=== PATIENT | male | born 1965 | race Two or more races ===

== ENCOUNTER 2016-12-12 02:57 | Emergency (ER) | payer BC ==
--- NOTE | 2016-12-12 03:05 | PDOC ---
History of Present Illness - General Chief Complaint: Pain Stated Complaint: ABD PAIN Time Seen by Provider: 12/12/16 03:05 - History of Present Illness Initial Comments: 12/12/16 03:20 This 51-year-old man, history of IDDM, hyperlipidemia, hypothyroidism presents with a two-week history of intermittent abdominal pain. Patient states that pain is sharp and worsened after eating. He cannot locate specific area of his abdomen saying that he feels pain "all over" his abdomen. He has mild nausea but no history of vomiting. No fever or chills. He has not had any loose stools but states he has had multiple (5-6) soft stools daily for the last several days. He has a history of GERD that was treated with medication prescribed by his doctor; no other intra-abdominal issues. He denies chest pain , shortness of breath.No blood in stool/ no black stool The patient also has been seeing his PMD with a few week history of left hip/ left proximal leg pain. No history of trauma or overuse. He recently had x- rays of the lower back/hip and is awaiting approval of MRI of the lower back. Tobacco: 3/4 pack per day Alcohol: rarely; no other recreational drugs PMD:Dr Davila PMH: as per HPI Also, hx of splenecectomy(after trauma) Past History - Past Medical History Allergies/Adverse Reactions: Allergies Allergy/AdvReac Type Severity Reaction Status Date / Time No Known Drug Allergies Allergy Verified 05/25/14 12:59 Home Medications: Ambulatory Orders Hum Insulin NPH/Reg Insulin Hm [Novolin 70-30 100 Unit/ml Vial] 13 units SQ TID 04/22/14 Hydrocodone/Acetaminophen [Vicodin 5-300 mg Tablet] 1 tab PO QID PRN #60 tablet 05/25/14 Atorvastatin Ca [Lipitor] 10 mg PO HS 12/12/16 Hyoscyamine Odt [Levsin Odt -] 0.125 mg SL QID PRN #20 tab.rapdis 12/12/16 Levothyroxine Sodium [Synthroid] 112 mcg PO DAILY 12/12/16 Diabetes: Yes - Surgical History Abdominal Surgery: Yes (SPLEENECTOMY) Orthopedic Surgery: Yes (ARTHROSCOPY LEFT SHOULDER) - Psycho/Social/Smoking Cessation Hx Smoking History: Current every day smoker Have you smoked in the past 12 months: Yes Number of Cigarettes Smoked Daily: 15 'Breaking Loose' booklet given: 04/22/14 Hx Alcohol Use: Yes (SOCIALLY) Substance Use Type: Alcohol Review of Systems - Review of Systems Able to Perform ROS?: Yes Comments:: 12 point review of systems is negative except for what is noted in the history of present illness *Physical Exam - Physical Exam Comments: GENERAL:Adult male,alert and oriented 3, in no acute distress HEAD: Normal with no signs of trauma. EYES: PERRLA, EOMI, sclera anicteric, conjunctiva clear. ENT: Ears normal, nares patent, oropharynx clear without exudates. Dry mucous membranes. NECK: Normal range of motion, supple without lymphadenopathy, JVD, or masses. LUNGS: Breath sounds equal, clear to auscultation bilaterally. No wheezes, and no crackles. HEART:Regular rate and rhythm, normal S1 and S2 without murmur, rub or gallop. ABDOMEN:.normal bowel sounds Minimal epigastric tenderness;Moderate LLQ tenderness without guarding/rebound No masses palpated EXTREMITIES: Normal range of motion, no edema. No clubbing or cyanosis. No erythema, or tenderness. NEUROLOGICAL: Cranial nerves II through XII grossly intact. Normal speech. No focal neuroloc deficts MUSCULOSKELETAL: Back non-tender to palpation, no CVA tenderness SKIN: Warm, Dry, normal turgor, no rashes or lesions noted. ED Treatment Course - LABORATORY CBC & Chemistry Diagram: 12/12/16 03:32 12/12/16 03:32 Progress Note - Progress Note Progress Note: .This 51-year-old man, insulin-dependent diabetic, presents with a few week history of intermittent sharp abdominal pain, felt throughout the abdomen and worse after eating. He also has had an increase in bowel movements (soft/not liquid) during this time. No previous history of gastrointestinal issues and is not yet had colonoscopy. Exam notable for left lower quadrant tenderness without peritoneal signs CBC/chemistry profile/lipase/cardiac enzymes/urinalysis sent Because of patient's left lower quadrant tenderness and change in bowel habits, abdominal/pelvic CT will be performed. Oral contrast will be given Medical Decision Making - Medical Decision Making 12/12/16 06:39 Abdominal/pelvic CT shows moderate wall edema and narrowing of transverse and descending colon (long segment without other abnormality) no evidence of diverticulitis or other acute abnormality. No masses noted. Results discussed with the patient. Patient be given Levsin 0.125 ODT now and prescription for this medication to be taken up to 4 times a day as needed for abdominal cramping will be sent to pharmacy. The patient will follow-up with Dr. Davila today; it is suggested that he call the office early today and follow-up as planned. Patient should return to the emergency room if he has severe persistent pain or develops fever/vomiting *DC/Admit/Observation/Transfer Diagnosis at time of Disposition: Colitis Abdominal pain Qualifiers: Abdominal location: generalized Qualified Code(s): R10.84 - Generalized abdominal pain - Discharge Dispostion Disposition: HOME Condition at time of disposition: Stable - Prescriptions Prescriptions: Hyoscyamine Odt [Levsin Odt -] 0.125 mg SL QID PRN #20 tab.rapdis PRN Reason: Pain - Referrals Referrals: Lee Davila MD [Primary Care Provider] - Call tomorrow - Patient Instructions Printed Discharge Instructions: DI for Colitis Additional Instructions: levsin ODT 0.125mg up to 4 times a day as needed for abdominal pain call Dr Davila today; followup as scheduled return to ER if you have severe pain or develop fever/vomiting
[2016-12-12 03:17] VITALS: BP 126/90; PULSE 65; TEMP 98.2; BMI 27.1
[2016-12-12 03:50] LABS: BASOPHIL 0.2 % (0-2.0); EOSINOPHIL 3.7 % (0-4.5); MCH 28.9 pg (25.7-33.7); MCHC 32.5 g/dl (32.0-35.9); MEAN CELL VOLUME 88.8 fl (80-96); MEAN PLT VOLUME 7.8 fl (7.5-11.1); NEUTROPHILS 54.6 % (42.8-82.8); PLATELET COUNT 479 K/MM3 (134-434); WHITE BLOOD COUNT 11.6 K/mm3 (4.0-10.0)
[2016-12-12 03:53] LABS: URINE APPEARANCE CLEAR; URINE BILIRUBIN NEGATIVE (NEGATIVE); URINE BLOOD NEGATIVE (NEGATIVE); URINE COLOR YELLOW; URINE GLUCOSE (UA) NEGATIVE (NEGATIVE); URINE KETONE NEGATIVE (NEGATIVE); URINE LEUK ESTERASE NEGATIVE (NEGATIVE); URINE NITRITE NEGATIVE (NEGATIVE); URINE PROTEIN NEGATIVE (NEGATIVE); URINE UROBILINOGEN NEGATIVE E.U./dl (0.2-1.0)
[2016-12-12 04:11] LABS: ALBUMIN 3.9 g/dl (3.4-5.0); ANION GAP 6 (8-16); BILIRUBIN,TOTAL 0.4 mg/dL (0.2-1.0); CALCIUM 9.1 mg/dL (8.5-10.1); CO2 29 mmol/L (21-32); GLUCOSE,RANDOM 119 mg/dL (74-106); SGOT/AST 24 U/L (15-37); SGPT/ALT 29 U/L (12-78); TOT PROT 7.7 g/dl (6.4-8.2)
[2016-12-12 04:14] LABS: ALK PHOS 107 U/L (45-117); TROPONIN I < 0.02 ng/ml (0.00-0.05)
[2016-12-12] MEDS ORDERED: KETOROLAC TROMETHAMINE 30 MG/1 ML VIAL IVPUSH ONE (06:11)
[2016-12-12] MEDS ORDERED: KETOROLAC TROMETHAMINE 30 MG/1 ML VIAL ONE (06:11)
[2016-12-12] MEDS ORDERED: HYOSCYAMINE SULFATE 0.125 MG *ODT PO ONE (06:24)
[2016-12-12] MEDS ORDERED: HYOSCYAMINE SULFATE 0.125 MG *ODT ONE (06:26)
== END 2016-12-12 06:53 | disposition home or self-care (01) ==
LOC: FER 02:57
PROC: 3E0333Z Introduction of Anti-inflammatory into Peripheral Vein, Percutaneous Approach (ICD-10-PCS; principal; 2016-12-12)
DX: K52.9 Noninfective gastroenteritis and colitis, unspecified (principal); R10.84 Generalized abdominal pain; E11.9 Type 2 diabetes mellitus without complications; F17.210 Nicotine dependence, cigarettes, uncomplicated; Z79.4 Long term (current) use of insulin
CPT/HCPCS: 36415; 74177-TC; 80053; 81003; 82550; 82553; 83690; 84484; 85025; 99283-25

== ENCOUNTER 2023-08-24 05:59 | Inpatient (IN) | payer BC, OTHER ==
[2023-08-24] MEDS ORDERED: ACETAMINOPHEN 1000 MG/100 ML BAG IVPB ONE (06:20)
[2023-08-24] MEDS ORDERED: PIPERACILLIN/TAZOB 4.5 GM 4.5 GM in DEXTROSE 5%-WATER 100 ML IVPB ONE (06:20)
[2023-08-24] MEDS ORDERED: SODIUM CHLORIDE 0.9% 500 ML INFUS.BAG IV ONE (06:20)
[2023-08-24] MEDS ORDERED: VANCOMYCIN 1,000 MG in DEXTROSE 5%-WATER - 250 ML IVPB ONE (06:20)
[2023-08-24] MEDS ORDERED: ACETAMINOPHEN INJECTION 100 ML IVPB ONE (06:28)
[2023-08-24 07:06] LABS: HEMATOCRIT 38.3 % (35.4-49); HEMOGLOBIN 12.6 GM/dL (11.7-16.9); MCH 28.9 pg (25.7-33.7); MCHC 32.9 g/dl (32.0-35.9); MEAN CELL VOLUME 87.7 fl (80-96); PLATELET COUNT 669 10^3/uL (134-434); RBC 4.37 M/mm3 (4.00-5.60); RDW 14.3 % (11.9-15.9)
[2023-08-24 07:10] LABS: INR 1.02 (0.83-1.09); PROTHROMBIN TIME (PATIENT) 11.8 SEC (9.7-13.0)
[2023-08-24 07:13] LABS: ACTIVATED PTT 32.8 SECONDS (25.2-36.5)
[2023-08-24 07:46] LABS: POTASSIUM 4.2 mmol/L (3.5-5.1)
[2023-08-24 07:48] LABS: CALCIUM 8.8 mg/dL (8.5-10.1)
[2023-08-24 07:49] LABS: BLOOD UREA NITROGEN 17.8 mg/dL (7-18)
[2023-08-24 07:52] LABS: CREATININE 0.7 mg/dL (0.55-1.3)
[2023-08-24 07:54] LABS: BILIRUBIN,TOTAL 0.3 mg/dL (0.2-1); TOT PROT 7.1 g/dl (6.4-8.2)
[2023-08-24] MEDS ORDERED: PIPERACILLIN/TAZOB 4.5 GM 4.5 GM/100 ML BAG IVPB ONE (08:06)
[2023-08-24] MEDS ORDERED: VANCOMYCIN 1 GRAM (PRE-DOCKED) 1,000 MG/250 ML BAG IVPB ONE (08:06)
[2023-08-24 09:18] LABS: ANISOCYTOSIS 1+; MACROCYTOSIS 0; TARGET CELLS 1+; TEAR DROP CELLS 1+
[2023-08-24] MEDS ORDERED: INSULIN (NOVOLOG) ASPART 100 UNITS/ML 10ML VIAL ONE (11:36)
[2023-08-24] MEDS: INSULIN SLIDING SCALE (NOVOLOG) 1 VIAL SQ SCH ×2 (11:38→15:58)
[2023-08-24] MEDS: LACTATED RINGERS SOLUTION 1,000 ML IV SCH (11:39)
[2023-08-24] MEDS: ENOXAPARIN NA (PORCINE) 40 MG/0.4 ML DISP.SYRIN SQ SCH (11:39)
[2023-08-24] MEDS: ACETAMINOPHEN 325 MG TABLET (FP) PO PRN ×2 (13:37→23:43)
[2023-08-24] MEDS ORDERED: PIPERACILLIN/TAZOB 3.375 GM 3.375 GM in DEXTROSE 5%-WATER - 50 ML IVPB SCH (16:00)
[2023-08-24] MEDS ORDERED: FLU VACCINE (FLULAVAL) PF 60 MCG/0.5 ML SYRINGE 2023-2024 IM ONE (16:00)
[2023-08-24] MEDS ORDERED: PNEUMOC 20-VAL CONJ-DIP CRM/PF 0.5 ML SYRINGE IM ONE (16:00)
[2023-08-24] MEDS ORDERED: VANCOMYCIN PREMIX 1.5 GM 1,500 MG/300 ML BAG IVPB SCH ×2 (18:00→22:00)
[2023-08-24] MEDS: PIPERACILLIN/TAZOB 3.375 GM 3.375 GM in DEXTROSE 5%-WATER - 50 ML IVPB SCH (18:14)
[2023-08-24] MEDS: ATORVASTATIN CA 20 MG TABLET (FP) PO SCH (22:52)
[2023-08-24] MEDS: VANCOMYCIN/WATER FOR INJ (PEG) 1,000 MG/200 ML BAG IVPB SCH (23:25)
[2023-08-25] MEDS ORDERED: KETOROLAC TROMETHAMINE 15 MG/ML VIAL IM ONE (00:53)
[2023-08-25] MEDS ORDERED: KETOROLAC TROMETHAMINE 15 MG/ML VIAL IVPUSH ONE (01:30)
[2023-08-25] MEDS: VANCOMYCIN/WATER FOR INJ (PEG) 1,000 MG/200 ML BAG IVPB SCH ×3 (01:56→22:54)
[2023-08-25] MEDS: PIPERACILLIN/TAZOB 3.375 GM 3.375 GM in DEXTROSE 5%-WATER - 50 ML IVPB SCH ×3 (03:49→19:05)
[2023-08-25] MEDS: LEVOTHYROXINE NA 100 MCG TABLET (FP) PO SCH (06:52)
[2023-08-25] MEDS ORDERED: INSULIN SLIDING SCALE (NOVOLOG) 1 VIAL SQ SCH ×2 (07:17→07:30)
[2023-08-25] MEDS: INSULIN SLIDING SCALE (NOVOLOG) 1 VIAL SQ SCH ×4 (07:27→23:00)
[2023-08-25 08:33] LABS: BASO % 0.9 % (0-2.0); EOS % 1.9 % (0-4.5); LYMPH % 18.7 % (8-40); MCH 28.3 pg (25.7-33.7); MCHC 32.5 g/dl (32.0-35.9); MEAN CELL VOLUME 87.3 fl (80-96); MEAN PLT VOLUME 7.7 fl (7.5-11.1); MONO % 9.5 % (3.8-10.2); PLATELET COUNT 620 10^3/uL (134-434); RBC 3.89 M/mm3 (4.00-5.60); RDW 14.3 % (11.9-15.9); WHITE BLOOD COUNT 14.7 K/mm3 (4.0-10.0)
[2023-08-25 08:41] LABS: INR 1.03 (0.83-1.09)
[2023-08-25 08:44] LABS: ACTIVATED PTT 31.7 SECONDS (25.2-36.5)
[2023-08-25 08:49] LABS: POTASSIUM 4.2 mmol/L (3.5-5.1)
[2023-08-25 08:53] LABS: CALCIUM 8.5 mg/dL (8.5-10.1); MAGNESIUM 1.7 mg/dL (1.8-2.4)
[2023-08-25 08:55] LABS: ALBUMIN 2.4 g/dl (3.4-5.0); BLOOD UREA NITROGEN 14.5 mg/dL (7-18)
[2023-08-25 08:57] LABS: CREATININE 0.6 mg/dL (0.55-1.3)
[2023-08-25 08:58] LABS: PHOSPHOROUS 2.9 mg/dL (2.5-4.9); TOT PROT 5.9 g/dl (6.4-8.2)
[2023-08-25 09:00] LABS: BILIRUBIN,TOTAL 0.4 mg/dL (0.2-1)
[2023-08-25] MEDS ORDERED: MAGNESIUM OXIDE 400 MG TABLET (FP) PO ONE (09:11)
[2023-08-25] MEDS ORDERED: oxyCODONE HCL 5 MG TABLET PO PRN (09:53)
[2023-08-25] MEDS ORDERED: ACETAMINOPHEN 1000 MG/100 ML BAG IVPB PRN (09:56)
[2023-08-25] MEDS ORDERED: DOCUSATE SODIUM 100 MG CAPSULE (FP) PO ONE (10:15)
[2023-08-25] MEDS: ENOXAPARIN NA (PORCINE) 40 MG/0.4 ML DISP.SYRIN SQ SCH (10:43)
[2023-08-25] MEDS: ACETAMINOPHEN 325 MG TABLET (FP) PO PRN (10:53)
[2023-08-25] MEDS: LACTATED RINGERS SOLUTION 1,000 ML IV SCH (10:54)
[2023-08-25] MEDS: INSULIN (LEVEMIR) 100 UNITS/ML UNITS SQ SCH (22:53)
[2023-08-25] MEDS: ATORVASTATIN CA 20 MG TABLET (FP) PO SCH (22:53)
[2023-08-25] MEDS ORDERED: MELATONIN 5 MG TABLETS PO ONE (23:50)
[2023-08-26] MEDS ORDERED: MELATONIN 5 MG TABLETS PO ONE (00:30)
[2023-08-26] MEDS ORDERED: INSULIN (NOVOLOG) ASPART 100 UNITS/ML 10ML VIAL ONE ×3 (00:57→22:35)
[2023-08-26] MEDS: PIPERACILLIN/TAZOB 3.375 GM 3.375 GM in DEXTROSE 5%-WATER - 50 ML IVPB SCH ×3 (01:01→17:35)
[2023-08-26] MEDS: LEVOTHYROXINE NA 100 MCG TABLET (FP) PO SCH (06:53)
[2023-08-26] MEDS: INSULIN (LEVEMIR) 100 UNITS/ML UNITS SQ SCH ×2 (06:53→22:37)
[2023-08-26] MEDS: INSULIN SLIDING SCALE (NOVOLOG) 1 VIAL SQ SCH ×4 (06:54→22:32)
[2023-08-26 07:43] LABS: EOS % 0.6 % (0-4.5); HEMATOCRIT 36.4 % (35.4-49); HEMOGLOBIN 11.7 GM/dL (11.7-16.9); LYMPH % 11.9 % (8-40); MCHC 32.1 g/dl (32.0-35.9); MEAN CELL VOLUME 87.2 fl (80-96); MEAN PLT VOLUME 7.7 fl (7.5-11.1); MONO % 8.4 % (3.8-10.2); NEUT % 78.1 % (42.8-82.8); PLATELET COUNT 697 10^3/uL (134-434); RBC 4.18 M/mm3 (4.00-5.60); RDW 14.4 % (11.9-15.9); WHITE BLOOD COUNT 14.9 K/mm3 (4.0-10.0)
[2023-08-26 08:03] LABS: POTASSIUM 4.1 mmol/L (3.5-5.1)
[2023-08-26 08:09] LABS: CALCIUM 8.7 mg/dL (8.5-10.1)
[2023-08-26 08:10] LABS: ALBUMIN 2.5 g/dl (3.4-5.0); BLOOD UREA NITROGEN 11.6 mg/dL (7-18); MAGNESIUM 1.9 mg/dL (1.8-2.4)
[2023-08-26 08:13] LABS: CREATININE 0.6 mg/dL (0.55-1.3)
[2023-08-26 08:14] LABS: BILIRUBIN,TOTAL 0.4 mg/dL (0.2-1)
[2023-08-26 08:15] LABS: TOT PROT 6.2 g/dl (6.4-8.2)
[2023-08-26] MEDS: ENOXAPARIN NA (PORCINE) 40 MG/0.4 ML DISP.SYRIN SQ SCH (10:34)
[2023-08-26] MEDS: VANCOMYCIN/WATER FOR INJ (PEG) 1,000 MG/200 ML BAG IVPB SCH ×2 (11:40→21:50)
[2023-08-26] MEDS: LACTATED RINGERS SOLUTION 1,000 ML IV SCH (11:40)
[2023-08-26 12:34] VITALS: BMI 19.2
[2023-08-26] MEDS ORDERED: ACETAMINOPHEN 1000 MG/100 ML BAG IVPB PRN (14:14)
[2023-08-26] MEDS: KETOROLAC TROMETHAMINE 10 MG TABLET PO PRN (21:47)
[2023-08-26] MEDS: ATORVASTATIN CA 20 MG TABLET (FP) PO SCH (21:49)
[2023-08-27] MEDS: PIPERACILLIN/TAZOB 3.375 GM 3.375 GM in DEXTROSE 5%-WATER - 50 ML IVPB SCH ×2 (03:20→11:36)
[2023-08-27] MEDS: INSULIN SLIDING SCALE (NOVOLOG) 1 VIAL SQ SCH ×2 (06:14→11:35)
[2023-08-27] MEDS: INSULIN (LEVEMIR) 100 UNITS/ML UNITS SQ SCH (07:18)
[2023-08-27] MEDS: LEVOTHYROXINE NA 100 MCG TABLET (FP) PO SCH (07:19)
[2023-08-27] MEDS: KETOROLAC TROMETHAMINE 10 MG TABLET PO PRN (07:29)
[2023-08-27 09:33] LABS: BASO % 1.1 % (0-2.0); EOS % 4.8 % (0-4.5); HEMATOCRIT 35.8 % (35.4-49); HEMOGLOBIN 11.6 GM/dL (11.7-16.9); LYMPH % 23.1 % (8-40); MCH 28.5 pg (25.7-33.7); MCHC 32.4 g/dl (32.0-35.9); MEAN CELL VOLUME 87.9 fl (80-96); MEAN PLT VOLUME 8.1 fl (7.5-11.1); MONO % 8.5 % (3.8-10.2); NEUT % 62.5 % (42.8-82.8); PLATELET COUNT 710 10^3/uL (134-434); RBC 4.07 M/mm3 (4.00-5.60); RDW 14.8 % (11.9-15.9); WHITE BLOOD COUNT 11.2 K/mm3 (4.0-10.0)
[2023-08-27 10:00] LABS: POTASSIUM 4.4 mmol/L (3.5-5.1)
[2023-08-27] MEDS ORDERED: MULTIVITAMINS THER W-MINERALS COMBO TABLET (FP) PO SCH (10:00)
[2023-08-27] MEDS ORDERED: COLLAGENASE CLOSTRIDIUM HIST. 30 GRAMS TUBE TP SCH (10:00)
[2023-08-27 10:20] LABS: CALCIUM 8.9 mg/dL (8.5-10.1)
[2023-08-27 10:21] LABS: ALBUMIN 2.5 g/dl (3.4-5.0); BLOOD UREA NITROGEN 12.2 mg/dL (7-18)
[2023-08-27 10:23] LABS: CREATININE 0.5 mg/dL (0.55-1.3)
[2023-08-27 10:24] LABS: MAGNESIUM 2.1 mg/dL (1.8-2.4); TOT PROT 6.2 g/dl (6.4-8.2)
[2023-08-27 10:25] LABS: BILIRUBIN,TOTAL 0.2 mg/dL (0.2-1)
[2023-08-27] MEDS: ENOXAPARIN NA (PORCINE) 40 MG/0.4 ML DISP.SYRIN SQ SCH (10:41)
[2023-08-27] MEDS: VANCOMYCIN/WATER FOR INJ (PEG) 1,000 MG/200 ML BAG IVPB SCH (10:41)
[2023-08-27] MEDS: LACTATED RINGERS SOLUTION 1,000 ML IV SCH (10:42)
[2023-08-27] MEDS ORDERED: INSULIN (NOVOLOG) ASPART 100 UNITS/ML 10ML VIAL ONE (11:31)
[2023-08-27] MEDS ORDERED: AMOX TR/POT CLAV 875MG/125MG TABLETS (FP) PO SCH ×2 (13:00→17:30)
[2023-08-27 14:12] VITALS: BP 146/86; PULSE 52; RESP 20; TEMP 98
== END 2023-08-27 18:16 | disposition home or self-care (01) | DRG 380 ==
LOC: JER 05:59 → JERBED 08:29 → J7W 10:19
PROVIDERS: ADMIT Internal Medicine; ATTEND Internal Medicine
DX: E11.621 Type 2 diabetes mellitus with foot ulcer (principal); L97.428 Non-pressure chronic ulcer of left heel and midfoot with other specified severity; E78.5 Hyperlipidemia, unspecified; E03.9 Hypothyroidism, unspecified; E11.65 Type 2 diabetes mellitus with hyperglycemia; L03.116 Cellulitis of left lower limb; R26.2 Difficulty in walking, not elsewhere classified; E11.42 Type 2 diabetes mellitus with diabetic polyneuropathy; F17.200 Nicotine dependence, unspecified, uncomplicated; D72.829 Elevated white blood cell count, unspecified
CPT/HCPCS: 36415; 71045-TC-FY; 73130-TC-LT-FY; 73610-TC-LT-FY; 73630-TC-LT; 73719-LT; 73720-LT; 75635-TC; 80053; 82550; 82962; 83036; 83735; 84100; 84436; 84439; 84443; 84479; 85025; 85610; 85730; 86140; 87040; 87070; 87077; 87186; 87205; 90677; 90686; 93005; 93010; 99285-25; G0008; Q9967

== ENCOUNTER 2024-04-23 04:16 | Day surgery (SDC) | payer OTHER ==
[2024-04-21 12:04] VITALS: BMI 22.8
[2024-04-23] MEDS: DEXTROSE 5%-WATER - 1,000 ML IV SCH (11:56)
[2024-04-23] MEDS ORDERED: MIDAZOLAM HCL 2 MG/2 ML SINGLE DOSE VIAL ONE (13:44)
[2024-04-23] MEDS: ceFAZolin SODIUM 1 GM VIAL IVPB ONE (13:54)
[2024-04-23] MEDS: LIDOCAINE HCL 1% PRESERVATIVE FREE - 30ML VIAL IJ ONE ×2 (13:59)
[2024-04-23] MEDS: LIDOCAINE HCL/PF 2% SDV 5ML VIAL INF ONE ×2 (14:05)
[2024-04-23 15:08] VITALS: RESP 18; TEMP 97.3
[2024-04-23 15:33] VITALS: BP 117/73; PULSE 56
== END 2024-04-23 15:40 | disposition home or self-care (01) ==
LOC: JASU-SURG 04:16
PROVIDERS: ATTEND Pain Medicine Pain Medicine
PROC: 00HU3MZ Insertion of Neurostimulator Lead into Spinal Canal, Percutaneous Approach (ICD-10-PCS; principal; 2024-04-23 12:15)
DX: M96.1 Postlaminectomy syndrome, not elsewhere classified (principal)
CPT/HCPCS: 63650; C1897; 76000-TC-FY; 82962